=== PATIENT | female | born 1950 | race Caucasian/White ===

== ENCOUNTER 2016-06-24 19:05 | Emergency (ER) | payer MEDICARE, OTHER ==
[~2016-06-24 19:05] MED LIST: CLARIT10 PO; NORV10 PO; XANAX1 MG PO
== END 2016-06-24 20:11 | disposition home or self-care (01) ==
LOC: ER 19:05
DX: L30.8 Other specified dermatitis (principal); I10 Essential (primary) hypertension; Z85.038 Personal history of other malignant neoplasm of large intestine; Z79.899 Other long term (current) drug therapy
CPT/HCPCS: 99282

== ENCOUNTER 2016-09-03 16:14 | Emergency (ER) | payer MEDICARE, OTHER | END 2016-09-03 17:35 | disposition home or self-care (01) | LOC: ER 16:14 | DX: S80.12XA Contusion of left lower leg, initial encounter (principal); F41.9 Anxiety disorder, unspecified; Z88.8 Allergy status to other drugs, medicaments and biological substances; W01.0XXA Fall on same level from slipping, tripping and stumbling without subsequent striking against object, initial encounter | CPT/HCPCS: 73590-LT; 99283 ==